=== PATIENT | male | born 1995 | race Two or more races ===

== ENCOUNTER 2016-12-21 14:21 | Emergency (ER) | payer MEDICAID, OTHER ==
[~2016-12-21] VITALS: Ht 167.6 cm; Wt 92.4 kg
[2016-12-21 14:23] VITALS: BP 126/88
[2016-12-21] MEDS ORDERED: LIDOCAINE 1%, 20ML ONE (14:51)
[2016-12-21] MEDS ORDERED: DIPH,PERTUSS(ACELL),TET VAC/PF 0.5 ML IM-VACC ONE ×2 (15:00→15:31)
[2016-12-21] MEDS ORDERED: LIDOCAINE 1%, 20ML SQ ONE (15:00)
[2016-12-21] MEDS ORDERED: BACITRACIN ZINC OINT 500U/GM, 0.9 GM ONE (15:27)
== END 2016-12-21 15:50 | disposition home or self-care (01) ==
LOC: ED 15:30
DX: S61.411A Laceration without foreign body of right hand, initial encounter (principal); W25.XXXA Contact with sharp glass, initial encounter; Y93.G1 Activity, food preparation and clean up; Y92.008 Other place in unspecified non-institutional (private) residence as the place of occurrence of the external cause; Y99.8 Other external cause status
CPT/HCPCS: 12001; 90471; 90715

== ENCOUNTER 2016-12-31 19:32 | Emergency (ER) | payer OTHER ==
[~2016-12-31] VITALS: Ht 167.6 cm; Wt 93.6 kg
[2016-12-31 19:35] VITALS: BP 120/74
== END 2016-12-31 20:46 | disposition home or self-care (01) ==
LOC: ED 20:00
DX: S61.411D Laceration without foreign body of right hand, subsequent encounter (principal); X58.XXXD Exposure to other specified factors, subsequent encounter
CPT/HCPCS: 99281